=== PATIENT | female | born 1960 | race Caucasian/White ===

== ENCOUNTER → 2016-07-16 | Day surgery (SDC) | payer OTHER ==
[~2016-07-16] MED LIST: ADVAIR 100-501 EAC1 INH; ALBUTEROL20 ml INH; AMBIEN10 MG PO; BENTYL10 MG PO; DULERA 100 MCG/13 GM INH; EC-NAPROSYN500 MG PO; FLEXERIL10 MG PO; K-LOR HOSPITAL20 ME1 PO; LAMISIL250 MG PO; METHOCARBAMOL500 MG PO; MIRAPEX0.25 MG PO; PRILOSEC PO; PROAIR HFA8.5 GM INH; SPECTAZOLE15 GM TOP; TRIAMTERENE-HC1 EACH PO; TRIAMTERENE-HCT1 TA8 PO; ZESTORETIC 20-1 EAC2 PO; [UNRECOGNIZED DRUG - OTHER] PO
--- NOTE | ~2016-07-16 | OR ---
Unit #: [id number] #: [id number] Patient: ALYCIA UMAÑA [id number] [address] [address] [id number] O MR#: [id number] NAME: ALYCIA UMAÑA ROOM: Date of Procedure: 07/16/2016 Admission Date: 07/16/2016 Surgeon: Daniel Hardy M.D. : 1960 Attending Physician: Daniel Hardy M.D. Primary Care Physician: Riaz Rivera M.D. OPERATIVE REPORT JOB NOTE: CC: [facility] PREOPERATIVE DIAGNOSES 1. Degenerative cervical disk disease, neck pain, cervical radiculopathy. 2. Back pain, spondylolisthesis, degenerative disk disease, degenerative spine disease. POSTOPERATIVE DIAGNOSES 1. Degenerative cervical disk disease, neck pain, cervical radiculopathy. 2. Back pain, spondylolisthesis, degenerative disk disease, degenerative spine disease. PROCEDURES PERFORMED 1. Lumbar epidural steroid injection with intravenous sedation and fluoroscopic guidance for needle localization. 2. Cervical epidural steroid injection with fluoroscopic guidance. INDICATIONS FOR PROCEDURE The patient is a 56-year-old female with previously mentioned diagnosis. She was injured initially in a fall primarily having problem with her neck. She failed to settle with conservative treatment. Decision was made to give a single epidural steroid injection, which was quite helpful, and has required the second injection approximately 6 months later. She last had a single cervical epidural steroid injection in 12/2015. Though symptoms have returned, plan is to repeat injection at that level. She also has degenerative disk and spine disease from L2-S1. She had a single injection done a little over 4 months ago and did fairly well, but that pain has returned. So, the plan is to repeat both injections at this point. DESCRIPTION OF PROCEDURE The patient was placed in a seated position. Standard monitors were applied. 2 mg of Versed were given for sedation and anxiolysis, which were adequate. Vital signs remained stable. Sterile prep and drape then of lumbar area was performed. The skin then at the L4 level was localized with 1% lidocaine. An 18-gauge Novustead needle was then advanced via loss of resistance technique and fluoroscopic guidance in toward the epidural space. After confirming proper positioning with fluoroscopy and radiographic contrast, 80 mg of Depo-Medrol and 6 mL of 0.125% bupivacaine were deposited. The patient tolerated this part of procedure well. procedure #2: Cervical epidural steroid injection with fluoroscopic Unit #: [id number] #: [id number] Patient: ALYCIA UMAÑA guidance. A separate kit was used to sterilely prep and drape the patient's cervical spine. The skin then at the C5-C6 level was localized with 1% lidocaine. An 18-gauge Novustead needle was then advanced via hanging drop technique and fluoroscopic guidance in toward the epidural space. After confirming proper positioning with fluoroscopy and radiographic contrast, 80 mg of Depo-Medrol and 2 mL of 0.25% bupivacaine were deposited. The patient tolerated the procedure otherwise well and was discharged to the recovery room in stable condition. Dictated by... Carrol Pike/mamie TD: 07/17/2016 02:17 JOB #: [id number] OPERATIVE REPORT Page 1 of 1 X Daniel Hardy MD X PROCEDURE OPERATIVE NOTE
== END | disposition home or self-care (01) ==
LOC: CCSC 09:36
DX: M50.10 Cervical disc disorder with radiculopathy, unspecified cervical region (principal); M51.36 Other intervertebral disc degeneration, lumbar region; M43.16 Spondylolisthesis, lumbar region
CPT/HCPCS: J1040; J2250

== ENCOUNTER → 2016-07-23 | Day surgery (SDC) | payer OTHER ==
--- NOTE | ~2016-07-23 | OR ---
Unit #: [id number] #: [id number] Patient: ALYCIA UMAÑA [id number] [address] [address] [id number] O MR#: [id number] NAME: ALYCIA UMAÑA ROOM: Date of Procedure: 07/23/2016 Admission Date: 07/23/2016 Surgeon: Daniel Hardy M.D. : 1960 Attending Physician: Daniel Hardy M.D. Primary Care Physician: Riaz Rivera M.D. OPERATIVE REPORT PREOPERATIVE DIAGNOSES 1. Degenerative lumbar disk disease, low back pain, radiculopathy, spondylolisthesis. 2. Cervical disk disease, neck pain, and cervical radiculopathy. POSTOPERATIVE DIAGNOSES 1. Degenerative lumbar disk disease, low back pain, radiculopathy, spondylolisthesis. 2. Cervical disk disease, neck pain, and cervical radiculopathy. PROCEDURE PERFORMED 1. Lumbar epidural steroid injection with intravenous sedation and fluoroscopic guidance for needle localization. 2. Cervical epidural steroid injection with fluoroscopic guidance for needle localization. INDICATIONS FOR PROCEDURE The patient is a 56-year-old female, who injured initially in 2012. She had extensive conservative measures, which failed. Decision made to give a trial of epidural steroids. Initial single was done last December at the cervical spine and single lumbar in March, both of these helped. They were not maintained as long as one likes. Repeat injections were done last week resulted in significant improvement in both of neck and back issues with the trial and since the patient does better with a series of injections, which also gave the patient much longer lasting improvement. DESCRIPTION OF PROCEDURE The patient was placed in a seated position. Standard monitors were applied. 2 mg of Versed were given for sedation and anxiolysis, which were adequate. Vital signs remained stable. Sterile prep and drape then of the lumbar area was performed. The skin then at the L3-L4 was localized with 1% lidocaine. An 18-gauge Control4tead needle was then advanced via loss of resistance technique and fluoroscopic guidance in toward the epidural space. After confirming proper needle tip positioning with fluoroscopy and radiographic contrast, 80 mg of Depo-Medrol and 4 mL of 0.125% bupivacaine were deposited. The patient tolerated this part of procedure well. Procedure #2: Cervical epidural steroid injection with fluoroscopic guidance. A separate kit was used to sterilely prep and drape the patient's cervical spine. The skin then at the C5-C6 level was localized Unit #: [id number] #: [id number] Patient: ALYCIA UMAÑA with 1% lidocaine. An 18-gauge BoardEvals needle was then advanced via hanging drop technique and fluoroscopic guidance in toward the epidural space. After confirming proper needle tip positioning with fluoroscopy and radiographic contrast, 80 mg of Depo-Medrol and 2 mL of 0.25% bupivacaine were deposited. The patient tolerated this part of procedure otherwise well and was discharged to the recovery room in stable condition. Dictated by... Carrol Pike/mamie TD: 07/24/2016 02:43 JOB #: [id number] OPERATIVE REPORT Page 1 of 1 X Daniel Hardy MD X PROCEDURE OPERATIVE NOTE
== END | disposition home or self-care (01) ==
LOC: CCSC 09:31
DX: M51.16 Intervertebral disc disorders with radiculopathy, lumbar region (principal); M50.10 Cervical disc disorder with radiculopathy, unspecified cervical region; E11.9 Type 2 diabetes mellitus without complications; J44.9 Chronic obstructive pulmonary disease, unspecified; I10 Essential (primary) hypertension
CPT/HCPCS: J1040; J2250

== ENCOUNTER → 2016-08-06 | Day surgery (SDC) | payer OTHER ==
--- NOTE | ~2016-08-06 | OR ---
Unit #: [id number] #: [id number] Patient: ALYCIA UMAÑA [id number] [address] [address] [id number] O MR#: [id number] NAME: ALYCIA UMAAÑ ROOM: Date of Procedure: 08/06/2016 Admission Date: 08/06/2016 Surgeon: Daniel Hardy M.D. : 1960 Attending Physician: Daniel Hardy M.D. Primary Care Physician: Riaz Rivera M.D. OPERATIVE REPORT PREOPERATIVE DIAGNOSES 1. Low back pain, radiculopathy, spondylolisthesis, degenerative lumbar disk disease. 2. Cervical degenerative disk disease, neck pain, cervical radiculopathy. PROCEDURES PERFORMED 1. Lumbar epidural steroid injection with intravenous sedation and fluoroscopic guidance for needle localization. 2. Cervical epidural steroid injection with fluoroscopic guidance for needle localization. INDICATIONS FOR PROCEDURE The patient is a 56-year-old female, who injured in a fall in 11/2012. She failed extensive attempts of conservative treatment. Workup did demonstrate severe neural foraminal stenosis from C3-C4 through C6-C7 with degenerative disk disease throughout the lumbar spine at L2 through S1, neural foraminal narrowing at L5 through S1, and retrolisthesis. Single epidural steroid injection was helpful in conjunction with therapy. She did not maintain improvement as long she would like. Decision made to give her trial of a series of injections. Two injections were done over the last month or so. She got an additive prolonged improvement. She is doing better than she was with a single injections. Based on good partial response, pathology, symptomatology, and limited other treatment options, we are going to proceed with a final epidural today in conjunction with the patient hopefully continue with rehabilitation program. Her main problem now are complaints of intermittent spasms in her neck or back. DESCRIPTION OF PROCEDURE The patient was placed in a seated position. Standard monitors were applied. 2 mg of Versed were given for sedation and anxiolysis, which were adequate. Vital signs remained stable. Sterile prep and drape then of the lumbar area was performed. The skin then at the L4 level was localized with 1% lidocaine. An 18-gauge Stageit needle was then advanced via loss of resistance technique and fluoroscopic guidance in toward the epidural space. After confirming proper positioning with fluoroscopy and radiographic contrast, 80 mg of Depo-Medrol and 6 mL of 0.125% bupivacaine were deposited. The patient tolerated this part of procedure well. A separate kit was then used to sterilely prep and drape the patient's cervical spine. The skin then at the C6 level was localized with 1% lidocaine. An 18-gauge PerfectPosttead needle was then advanced via hanging drop technique with fluoroscopic guidance in toward the epidural space. After Unit #: [id number] #: [id number] Patient: ALYCIA UMAÑA confirming proper positioning with fluoroscopy and radiographic contrast, a dose of 80 mg of Depo-Medrol and 2 mL of 0.25% bupivacaine were deposited. The patient tolerated the procedure otherwise well and was discharged to the recovery room in stable condition. Dictated by... Carrol Pike/mamie TD: 08/07/2016 02:03 JOB #: [id number] CC: [email or web address]/derickision Please Delete OPERATIVE REPORT Page 1 of 1 X Daniel Hardy MD X PROCEDURE OPERATIVE NOTE
== END | disposition home or self-care (01) ==
LOC: CCSC 09:35
DX: M51.16 Intervertebral disc disorders with radiculopathy, lumbar region (principal); M43.17 Spondylolisthesis, lumbosacral region; M50.11 Cervical disc disorder with radiculopathy, high cervical region; J44.9 Chronic obstructive pulmonary disease, unspecified; I10 Essential (primary) hypertension
CPT/HCPCS: J1040; J2250

== ENCOUNTER → 2016-11-21 | Day surgery (SDC) | payer OTHER ==
--- NOTE | ~2016-11-21 | OR ---
Unit #: [id number] #: [id number] Patient: ALYCIA UMAÑA [id number] [address] [address] [id number] O MR#: [id number] NAME: ALYCIA UMAÑA ROOM: Date of Procedure: 11/21/2016 Admission Date: 11/21/2016 Surgeon: Daniel Hardy M.D. : 1960 Attending Physician: Daniel Hardy M.D. Primary Care Physician: Riaz Rivera M.D. OPERATIVE REPORT PREOPERATIVE DIAGNOSES 1. Low back pain, radiculopathy, degenerative lumbar disk disease. 2. Neck pain, cervical degenerative disk disease, cervical radiculopathy. POSTOPERATIVE DIAGNOSES 1. Low back pain, radiculopathy, degenerative lumbar disk disease. 2. Neck pain, cervical degenerative disk disease, cervical radiculopathy. PROCEDURES PERFORMED 1. Lumbar epidural steroid injection with intravenous sedation and fluoroscopic guidance for needle localization. 2. Cervical epidural steroid injection and fluoroscopic guidance for needle localization. INDICATIONS FOR PROCEDURE The patient is a 56-year-old female, injured in 2012 after a fall. She failed extensive attempts of conservative treatment. She has been treated intermittently with epidural steroids getting anywhere from 3 to 6 months of improvement. Last injections were completed about 3-1/2 months ago. She did well until just recently. Based on history, pathology, and symptomatology, and treatment options, we are going to proceed with a repeat epidural today. DESCRIPTION OF PROCEDURE Procedure #1: The patient was placed in a seated position. Standard monitors were applied. 2 mg of Versed were given for sedation and anxiolysis, which were adequate. Vital signs remained stable. Sterile prep and drape then of the lumbar area was performed. The skin then at the L4-L5 level was localized with 1% lidocaine. An 18-gauge Korbitectead needle was then advanced via loss of resistance technique and fluoroscopic guidance in toward the epidural space. After confirming proper positioning with fluoroscopy and radiographic contrast, 80 mg of Depo-Medrol and 4 mL of 0.125% bupivacaine were deposited. The patient tolerated the procedure well. Procedure #2 : Cervical epidural steroid injection with fluoroscopic guidance. A separate kit was used to sterilely prep and drape the patient's cervical spine. The skin at the C6-C7 level was localized with 1% lidocaine. An 18-gauge Osmetech needle was then advanced via hanging drop technique and fluoroscopic guidance in toward the epidural space. After confirming proper positioning with fluoroscopy and radiographic Unit #: [id number] #: [id number] Patient: ALYCIA UMAÑA contrast, 80 mg Depo-Medrol and 4 mL of 0.125% bupivacaine were deposited. The patient tolerated the procedure otherwise well and was discharged to the recovery room in stable condition. Dictated by... Carrol Pike/mamie TD: 11/21/2016 11:35 JOB #: [id number] OPERATIVE REPORT Page 1 of 1 X Daniel Hardy MD X PROCEDURE OPERATIVE NOTE
== END | disposition home or self-care (01) ==
LOC: CCSC 08:24
DX: M51.16 Intervertebral disc disorders with radiculopathy, lumbar region (principal); M54.5 Low back pain; M50.10 Cervical disc disorder with radiculopathy, unspecified cervical region; J44.9 Chronic obstructive pulmonary disease, unspecified; I10 Essential (primary) hypertension
CPT/HCPCS: J1040; J2250

== ENCOUNTER → 2016-11-28 | Day surgery (SDC) | payer OTHER ==
--- NOTE | ~2016-11-28 | OR ---
Unit #: [id number] #: [id number] Patient: ALYCIA UMAÑA [id number] [address] [address] [id number] O MR#: [id number] NAME: ALYCIA UMAÑA ROOM: Date of Procedure: 11/28/2016 Admission Date: 11/28/2016 Surgeon: Daniel Hardy M.D. : 1960 Attending Physician: Daniel Hardy M.D. Primary Care Physician: Riaz Rivera M.D. OPERATIVE REPORT PREOPERATIVE DIAGNOSES 1. Low back pain, radiculopathy, degenerative disk disease, spondylolisthesis. 2. Neck pain, cervical radiculopathy, degenerative cervical disk disease. POSTOPERATIVE DIAGNOSES 1. Low back pain, radiculopathy, degenerative disk disease, spondylolisthesis. 2. Neck pain, cervical radiculopathy, degenerative cervical disk disease. PROCEDURES PERFORMED 1. Lumbar epidural steroid injection with intravenous sedation and fluoroscopic guidance for needle localization. 2. Cervical epidural steroid injection with fluoroscopic guidance for needle localization. INDICATIONS FOR PROCEDURE This is a 56-year-old female, injured in a fall about 4 years ago. She underwent extensive conservative treatment without significant improvement in her symptom complex. Based on the cervical and lumbar spine pathology, decision was made to give a trial of epidural steroids which had been quite helpful for her. Pain had returned, received a repeat injection which resulted in improvement generally takes the second injection definite improvement in her symptom complex. DESCRIPTION OF PROCEDURE The patient was placed in a seated position. Standard monitors were applied. 2 mg of Versed were given for sedation and anxiolysis, which were adequate. Vital signs remained stable. Sterile prep and drape then of lumbar area was performed. The skin at the L3-L4 level was localized with 1% lidocaine. An 18-gauge Casengo needle was then advanced via loss of resistance technique and fluoroscopic guidance in toward the epidural space. After confirming proper needle tip positioning with fluoroscopy and radiographic contrast, 80 mg of Depo-Medrol and 6 mL of 0.125% bupivacaine were deposited. The patient tolerated this part of the procedure well. Procedure #2: Cervical epidural steroid injection with fluoroscopic guidance. A separate kit was used to sterilely prep and drape the patient's cervical spine. The skin at the C5-C6 level was localized with 1% lidocaine. An 18-gauge Casengo needle was then advanced via hanging Unit #: [id number] #: [id number] Patient: ALYCIA UMAÑA drop technique and fluoroscopic guidance in toward the epidural space. After confirming proper positioning with fluoroscopy and radiographic contrast, 80 mg of Depo-Medrol and 2 mL of 0.25% bupivacaine were deposited. The patient tolerated the procedure otherwise well and was discharged to the recovery room in stable condition. Dictated by... Carrol Pike/mamie TD: 11/28/2016 10:27 JOB #: [id number] CC: [email or web address]/invision Please Delete OPERATIVE REPORT Page 1 of 1 X Daniel Hardy MD X PROCEDURE OPERATIVE NOTE
== END | disposition home or self-care (01) ==
LOC: CCSC 08:18
DX: M51.16 Intervertebral disc disorders with radiculopathy, lumbar region (principal); M50.10 Cervical disc disorder with radiculopathy, unspecified cervical region; M43.16 Spondylolisthesis, lumbar region; E11.9 Type 2 diabetes mellitus without complications; I10 Essential (primary) hypertension; J44.9 Chronic obstructive pulmonary disease, unspecified; Z88.5 Allergy status to narcotic agent; Z79.51 Long term (current) use of inhaled steroids; Z79.899 Other long term (current) drug therapy
CPT/HCPCS: J1040; J2250

== ENCOUNTER → 2016-12-05 | Day surgery (SDC) | payer OTHER ==
--- NOTE | ~2016-12-05 | OR ---
Unit #: [id number] #: [id number] Patient: ALYCIA UMAÑA [id number] [address] [address] [id number] O MR#: [id number] NAME: ALYCIA UMAÑA ROOM: Date of Procedure: 12/05/2016 Admission Date: 12/05/2016 Surgeon: Daniel Hardy M.D. : 1960 Attending Physician: Daniel Hardy M.D. Primary Care Physician: Riaz Rivera M.D. OPERATIVE REPORT PREOPERATIVE DIAGNOSES 1. Neck pain, cervical radiculopathy, degenerative cervical disk disease, cervical spinal stenosis. 2. Back pain, radiculopathy, degenerative disk disease, spondylolisthesis. POSTOPERATIVE DIAGNOSES 1. Neck pain, cervical radiculopathy, degenerative cervical disk disease, cervical spinal stenosis. 2. Back pain, radiculopathy, degenerative disk disease, spondylolisthesis. PROCEDURES PERFORMED 1. Lumbar epidural steroid injection with intravenous sedation and fluoroscopic guidance for needle localization. 2. Cervical epidural steroid injection with fluoroscopic guidance. INDICATIONS FOR PROCEDURE The patient is a 56-year-old female, injured about 4 years ago fall. She has not settled with conservative measures. She has done extremely well with epidural steroids. Since that she has a series of injections, the pain flares adequately settle and her symptom complex down. She has had 2 injections done over the last month or so. First injection resulted in very mild improvement. Second injections resulted in much more significant about 30% to 40% settling. Based on her good partial response and prior response, pathology, symptomatology, and treatment options, we are going to proceed with a final injection today. DESCRIPTION OF PROCEDURE Procedure #1: The patient was placed in a seated position. Standard monitors were applied. 2 mg of Versed were given for sedation and anxiolysis, which were adequate. Vital signs remained stable. Sterile prep and drape then of lumbar area was performed. The skin then at the L4-L5 level was localized with 1% lidocaine. An 18-gauge Unit[employer] Technology needle was then advanced via loss of resistance technique and fluoroscopic guidance in toward the epidural space. After confirming proper positioning with fluoroscopy and radiographic contrast, 80 mg of Depo-Medrol and 4 mL of 0.125% bupivacaine were deposited. The patient tolerated the procedure well. Procedure #2: Cervical epidural steroid injection with fluoroscopic guidance. A separate kit was used to sterilely prep and drape the patient's cervical spine. The skin at the C6-C7 level was localized with Unit #: [id number] #: [id number] Patient: ALYCIA UMAÑA 1% lidocaine. An 18-gauge Unitrio Technology needle was then advanced via hanging drop technique and fluoroscopic guidance in toward the epidural space. After confirming proper positioning with fluoroscopy and radiographic contrast, 80 mg of Depo-Medrol and 2 mL of 0.125% bupivacaine were deposited. The patient tolerated the procedure otherwise well and was discharged to the recovery room in stable condition. Dictated by... Carrol Pike/mamie TD: 12/05/2016 14:53 JOB #: [id number] OPERATIVE REPORT Page 1 of 1 X Daniel Hardy MD X PROCEDURE OPERATIVE NOTE
== END | disposition home or self-care (01) ==
LOC: CCSC 08:16
DX: M51.16 Intervertebral disc disorders with radiculopathy, lumbar region (principal); M50.10 Cervical disc disorder with radiculopathy, unspecified cervical region; M48.02 Spinal stenosis, cervical region; M43.16 Spondylolisthesis, lumbar region; I10 Essential (primary) hypertension; J44.9 Chronic obstructive pulmonary disease, unspecified; Z88.5 Allergy status to narcotic agent; Z79.51 Long term (current) use of inhaled steroids; Z79.899 Other long term (current) drug therapy
CPT/HCPCS: J1040; J2250